=== PATIENT | female | born 1970 | race Caucasian/White ===

== ENCOUNTER 2017-03-15 12:42 | Emergency (ER) | payer MEDICAID, OTHER ==
[~2017-03-15] VITALS: Ht 154.9 cm; Wt 61.2 kg
[2017-03-15 13:25] LABS: Basophils # (auto) 0.1 uL; Basophils % (auto) 0.8 % (0.0-2.0); Eosinophils # (auto) 0.2 uL; Eosinophils % (auto) 2.8 % (0.0-7.0); Hematocrit 38.6 % (36.0-46.0); Hemoglobin 12.6 g/dL (12.2-16.2); Lymphocytes # (auto) 1.4 uL; Lymphocytes % (auto) 17.9 % (10.0-50.0); Mean Corpuscular Hemoglobin 27.8 pg (28.0-32.0); Mean Corpuscular Hgb Conc. 32.7 g/dL (32.0-36.0); Mean Corpuscular Volume 85.1 fL (80.0-100.0); Mean Platelet Volume 7.8 fL (6.9-10.8); Monocytes # (auto) 0.6 uL; Monocytes % (auto) 7.7 % (0.0-12.0); Neutrophils # (auto) 5.5 uL; Neutrophils % (auto) 70.8 % (37.0-80.0); Platelet Count (auto) 339 10^3/uL (140-450); Red Cell Distribution Width 14.4 % (11.8-14.3); White Blood Cell 7.8 10^3/uL (4.4-10.8)
[2017-03-15 13:53] LABS: Albumin 3.3 g/dL (3.4-5.0); Alkaline Phosphatase 70 U/L (45-117); Anion Gap 6 (5-15); Aspartate Aminotransferase 17 U/L (15-37); BUN/Creatinine Ratio 10.6; Bilirubin, Total 0.6 mg/dL (0.2-1.0); Blood Urea Nitrogen 7 mg/dL (7-18); Calcium 8.4 mg/dL (8.5-10.1); Carbon Dioxide 28 mmol/L (21-32); Chloride 105 mmol/L (98-107); GFR African American 125 mL/min; GFR Non-African American 103 mL/min; Glucose 94 mg/dL (74-106); Magnesium 2.2 mg/dL (1.6-2.6); Potassium 3.4 mmol/L (3.5-5.1); Sodium 139 mmol/L (136-145); Total Protein 7.2 g/dL (6.4-8.2)
[2017-03-15 20:22] LABS: Urine Bilirubin Negative (Negative); Urine Blood Negative /uL (Negative); Urine Color Yellow (Yellow); Urine Glucose Normal (Normal); Urine Ketone TRACE (Negative); Urine Mucus FEW (None Seen); Urine Nitrite POSITIVE (Negative); Urine RBC 22 /hpf (0 - 4); Urine Squamous Epithelial Cell FEW /hpf (<5); Urine Urobilinogen Normal (Negative); Urine pH 6.5 (5.0-8.0)
[2017-03-15 21:20] VITALS: BP 127/98
[2017-03-16] MEDS ORDERED: LORazepam 2MG/ML-1ML VIAL IV ONE (00:45)
[2017-03-16] MEDS ORDERED: LORazepam 0.5 MG TAB PO ONE (00:45)
== END 2017-03-16 01:13 | disposition home or self-care (01) ==
LOC: ER 12:42
DX: M79.602 Pain in left arm (principal); R42 Dizziness and giddiness; F41.9 Anxiety disorder, unspecified; R51 Headache; M47.892 Other spondylosis, cervical region; F12.10 Cannabis abuse, uncomplicated; F15.10 Other stimulant abuse, uncomplicated
CPT/HCPCS: 36415; 70450; 71020; 72125; 80053; 80307; 81001; 83735; 84484; 84702; 85025; 93005

== ENCOUNTER 2017-11-23 03:06 | Emergency (ER) | payer MEDICAID ==
[~2017-11-23] VITALS: Ht 157.5 cm; Wt 52.2 kg
[2017-11-23] MEDS ORDERED: LORazepam 2MG/ML-1ML VIAL IM ONE (05:30)
[2017-11-23] MEDS ORDERED: LORazepam 2MG/ML-1ML VIAL IV ONE (05:30)
[2017-11-23] MEDS ORDERED: diphenhdrAMINE HCL 50 MG/1 ML VL IM ONE (05:30)
[2017-11-23] MEDS ORDERED: HALOPERIDOL LACTATE 5 MG/ML INJ VIAL IM ONE (05:30)
[2017-11-23 06:44] LABS: Basophils # (auto) 0 uL; Basophils % (auto) 0.5 % (0.0-2.0); Eosinophils # (auto) 0 uL; Lymphocytes # (auto) 1.1 uL; Lymphocytes % (auto) 17.6 % (10.0-50.0); Monocytes # (auto) 0.5 uL; Neutrophils # (auto) 4.7 uL; White Blood Cell 6.4 10^3/uL (4.4-10.8)
[2017-11-23 06:51] LABS: Eosinophils % (auto) 0.3 % (0.0-7.0); Hematocrit 31.5 % (36.0-46.0); Hemoglobin 10.4 g/dL (12.2-16.2); Mean Corpuscular Hemoglobin 25.7 pg (28.0-32.0); Mean Corpuscular Hgb Conc. 33.1 g/dL (32.0-36.0); Mean Corpuscular Volume 77.6 fL (80.0-100.0); Neutrophils % (auto) 73.6 % (37.0-80.0); Nucleated Red Blood Cells % 0.1 %; Platelet Count (auto) 253 10^3/uL (140-450); Red Blood Cells 4.06 10^6/uL (4.0-5.20); Red Cell Distribution Width 16.6 % (11.8-14.3)
[2017-11-23 07:02] LABS: Alanine Aminotransferase 26 U/L (13-56); Albumin 2.9 g/dL (3.4-5.0); Anion Gap 13 (5-15); Aspartate Aminotransferase 24 U/L (15-37); BUN/Creatinine Ratio 18.8; Blood Urea Nitrogen 13 mg/dL (7-18); Calcium 7.5 mg/dL (8.5-10.1); Carbon Dioxide 25 mmol/L (21-32); Chloride 104 mmol/L (98-107); GFR African American 118 mL/min; GFR Non-African American 97 mL/min; Glucose 86 mg/dL (74-106); Sodium 142 mmol/L (136-145)
[2017-11-23 07:12] LABS: Acetaminophen < 2.0 ug/mL (10-30); Salicylate < 1.7 mg/dL (2.8-20.0)
[2017-11-23 07:17] LABS: Alkaline Phosphatase 66 U/L (45-117); Bilirubin, Total 0.4 mg/dL (0.2-1.0); Potassium 2.9 mmol/L (3.5-5.1); Total Protein 6.6 g/dL (6.4-8.2)
[2017-11-23 10:27] LABS: Urine Bacteria FEW /hpf (None Seen); Urine Blood Negative /uL (Negative); Urine Mucus FEW (None Seen); Urine Specific Gravity 1.023 (1.001-1.035); Urine WBC 5 /hpf (0 - 5)
[2017-11-23 10:49] LABS: Amphetamine Screen, Urine POSITIVE (NEGATIVE); Barbiturate Scree,Urine NEGATIVE (NEGATIVE); Benzodiazephine Screen, Urine NEGATIVE (NEGATIVE); Cannabinoid Screen, Urine NEGATIVE (NEGATIVE); Cocaine Screen, Urine NEGATIVE (NEGATIVE); Opiate Scree,Urine NEGATIVE (NEGATIVE); Phencyclidine Screen, Urine NEGATIVE (NEGATIVE)
[2017-11-23] MEDS ORDERED: SODIUM CHLORIDE 0.9% 1,000 ML IV ONE ×2 (16:25)
[2017-11-23] MEDS: POTASSIUM CHL 20MEQ/100ML 100 ML IV SCH ×3 (16:48→21:25)
[2017-11-23] MEDS ORDERED: POTASSIUM CHL 20MEQ/100ML 100 ML IV ONE (16:48)
[2017-11-24 09:17] VITALS: BP 128/88
== END 2017-11-24 18:30 ==
LOC: EDBD 03:06 → ER 03:12
DX: R45.851 Suicidal ideations (principal); E87.6 Hypokalemia; F41.9 Anxiety disorder, unspecified; F12.10 Cannabis abuse, uncomplicated; F15.10 Other stimulant abuse, uncomplicated
CPT/HCPCS: 36415; 51702; 80053; 80307; 80320; 80329; 81001; 81025; 84132; 84484; 85025; 96365; 96366; 96372; 99285; J1200; J1630; J2060; J3480; J7030; 96361; 96374; 96375

== ENCOUNTER 2022-06-23 09:24 | Emergency (ER) | payer MEDICAID ==
[~2022-06-23] VITALS: Ht 157.5 cm; Wt 69.0 kg
[2022-06-23 10:01] LABS: Urine Bacteria NONE SEEN /hpf (None Seen); Urine Blood 1+ /uL (Negative); Urine Specific Gravity 1.002 (1.001-1.035); Urine WBC 1 /hpf (0 - 5)
[2022-06-23 10:12] LABS: Basophils # (auto) 0.1 10 ^3/uL (0-0.2); Basophils % (auto) 0.7 % (0.0-2.0); Eosinophils # (auto) 0.1 10 ^3/uL (0-0.8); Eosinophils % (auto) 1.3 % (0.0-7.0); Hematocrit 39.7 % (36.0-46.0); Hemoglobin 13.5 g/dL (12.2-16.2); Lymphocytes # (auto) 1.4 10 ^3/uL (0.4-5.4); Mean Corpuscular Hemoglobin 31.1 pg (28.0-32.0); Mean Corpuscular Hgb Conc. 33.9 g/dL (32.0-36.0); Mean Corpuscular Volume 91.8 fL (80.0-100.0); Monocytes # (auto) 0.6 10 ^3/uL (0-1.3); Monocytes % (auto) 7.5 % (0.0-12.0); Neutrophils # (auto) 5.5 10 ^3/uL (1.6-8.6); Neutrophils % (auto) 72.5 % (37.0-80.0); Nucleated Red Blood Cells % 0.2 %; Red Blood Cells 4.33 10^6/uL (4.0-5.20); White Blood Cell 7.6 10^3/uL (4.4-10.8)
[2022-06-23 10:28] LABS: Albumin 4.2 g/dL (3.4-5.0); Calcium 9.3 mg/dL (8.5-10.1); Potassium 4.7 mmol/L (3.5-5.1)
[2022-06-23 10:33] LABS: BUN/Creatinine Ratio 21.9; Bilirubin, Total 0.5 mg/dL (0.2-1.0)
[2022-06-23 15:36] VITALS: BP 115/85
== END 2022-06-23 15:36 | disposition home or self-care (01) ==
LOC: ER 09:24
DX: F43.9 Reaction to severe stress, unspecified (principal); I10 Essential (primary) hypertension
CPT/HCPCS: 36415; 70450; 80053; 81001; 82962; 84484; 85025

== ENCOUNTER 2025-02-23 01:34 | Inpatient (IN) | payer MEDICAID ==
[~2025-02-23] VITALS: Ht 160 cm; Wt 87.8 kg
--- NOTE | 2025-02-23 02:14 | ED.PDOC ---
History of Present Illness HPI Comments 54-year-old female came to ER via EMS for weakness. Patient has a history of hypertension, traumatic brain injury, history of methamphetamine abuse. States she smoked marijuana about 2 hours prior to arrival. 45 minutes prior to arrival, patient started feeling weak, like her heart was fluttering, and dizziness. Denies any acute chest pains. Upon arrival paramedics patient noted to be on bigeminy on EKG. REVIEW OF SYSTEMS: General: No fever, no chills, or fatigue. Positive generalized weakness. HEENT: No sore throat, no earache, no congestion, no neck pain. Cardiac: No chest pain. Positive palpitations. Lungs: No shortness of breath, no cough. GI: No nausea, no vomiting, no diarrhea, no constipation, no abdominal pain : No dysuria, frequency, or urgency. No hematuria. Musculoskeletal: No joint pain , no joint swelling, no extremity edema. Skin: No rash, no itching. Neuro: No headache, positive dizziness, no weakness PHYSICAL EXAM: General: Awake, alert, somewhat lethargic appearing. Skin: Skin in warm, dry and intact. Appropriate color for ethnicity. HEENT: The head is normocephalic and atraumatic. Conjunctivae are clear without exudates or hemorrhage. Sclera is non-icteric. EOM are intact. No signs of nystagmus. Eyelids are normal in appearance without swelling or lesions. Oral mucosa is pink and moist Neck: The neck is supple with normal range of motion. No JVD. Cardiac: Heart rate and rhythm are normal. No murmurs, gallops, or rubs are auscultated. Respiratory: No signs of respiratory distress. Lung sounds are clear in all lobes bilaterally without rales, rhonchi, or wheezes. Abdominal: Abdomen is soft, non-tender without distention, guarding or rigidity. Bowel sounds are present and normoactive in all four quadrants. Extremities: Upper and lower extremities are atraumatic in appearance without deformity or edema. Neurological: The patient is awake, alert and oriented to person, place, and time with normal speech. Speech is clear. There is no facial asymmetry. Psychiatric: Appropriate mood and affect. Good judgement and insight. Chief Complaint: General Weakness Time Seen by MD: 02:14 Primary Care Provider: Dawit Reviewed Notes: Nurses Notes Allergies: Coded Allergies: NO KNOWN ALLERGIES (Unverified , 03/15/17) Information Source: Patient Mode of Arrival: EMS Past Medical History PAST MEDICAL HISTORY: HTN Past Medical History (Other): Traumatic brain injury, SVTs Surgical History: Denies all surgeries PALEOLOGIST History: No Pertinent PALEOLOGIST History Family History Family History: Unknown Social History Smoker: Non-Smoker Alcohol: Denies ETOH Use Drugs: Marijuana, Methamphetamine Lives In: Home Was a procedure done? Was a procedure done?: No EKG EKG : Pulse Rate (adult): 87 Cardiac Rhythm: NSR Comments Ventricular bigeminy Differential Dx Considerations may include: Anemia, electrolyte imbalance, weakness, arrhythmia X-Ray, Labs, Meds, VS Vital Signs Date Time Temp Pulse Resp B/P (MAP) Pulse Ox O2 Delivery O2 Flow Rate FiO2 02/23/25 02:40 98.1 74 18 115/71 (86) 91 98.1 02/23/25 02:40 75 18 91 Nasal Cannula* 2 28 02/23/25 02:14 87 02/23/25 01:42 98.0 64 18 139/68 94 98.0 Lab Test 02/23/25 02:16 02/23/25 01:45 Range/Units White Blood Count Pending Red Blood Count Pending Hemoglobin Pending Hematocrit Pending Mean Corpuscular Volume Pending Mean Corpuscular Hemoglobin Pending Mean Corpuscular Hemoglobin Concent Pending Red Cell Distribution Width Pending Platelet Count Pending Mean Platelet Volume Pending Neutrophils (%) (Auto) Pending Lymphocytes (%) (Auto) Pending Monocytes (%) (Auto) Pending Basophils (%) (Auto) Pending Neutrophils # (Auto) Pending Lymphocytes # (Auto) Pending Monocytes # (Auto) Pending Sodium Level 139 136-145 mmol/L Potassium Level 4.1 3.5-5.1 mmol/L Chloride Level 103 98-107 mmol/L Carbon Dioxide Level 27 20-31 mmol/L Anion Gap 9 5-15 Blood Urea Nitrogen 16 9-23 mg/dL Creatinine 1.26 H 0.550-1.02 mg/dL Glomerular Filtration Rate Calc 51 >90 mL/min BUN/Creatinine Ratio 12.7 10.0-20.0 Serum Glucose 106 74-106 mg/dL Lactic Acid Level 0.7 0.4-2.0 mmol/L Calcium Level 9.1 8.7-10.4 mg/dL Magnesium Level 2.1 1.6-2.6 mg/dL Total Bilirubin 0.4 0.2-1.0 mg/dL Aspartate Amino Transferase (AST) 18 13-40 U/L Alanine Aminotransferase (ALT) 14 7-40 U/L Alkaline Phosphatase 79 46-116 U/L Troponin I High Sensitivity < 3 L </=34 ng/L B-Type Natriuretic Peptide 16.68 0-100 pg/mL Total Protein 7.1 5.7-8.2 g/dL Albumin 4.2 3.2-4.8 g/dL Lipase 44 12-53 U/L Thyroid Stimulating Hormone (TSH) 2.64 0.55-4.78 uIU/mL Plasma/Serum Blood Alcohol < 3.0 <10 mg/dL Urine Color Light-yellow Yellow Urine Clarity Clear Clear Urine pH 6.0 5.0-9.0 Urine Specific [place] 1.011 1.001-1.035 Urine Protein Negative Negative Urine Ketones Negative Negative Urine Blood Negative Negative /uL Urine Nitrite Negative Negative Urine Bilirubin Negative Negative Urine Urobilinogen Normal Negative mg/dL Urine Leukocyte Esterase Negative Negative /uL Urine RBC <1 0 - 4 /hpf Urine Microscopic WBC 3 0-5 /HPF Urine Squamous Epithelial Cells Few <5 /hpf Urine Renal Epithelial Cells Few None Seen /hpf Urine Bacteria None seen None Seen /hpf Urine Glucose Normal Normal mg/dL Urine Opiates Screen Neg NEGATIVE Urine Fentanyl Screen Neg NEGATIVE Urine Barbiturates Screen Neg NEGATIVE Urine Phencyclidine Screen Neg NEGATIVE Urine Amphetamines Screen Neg NEGATIVE Urine Benzodiazepines Screen Neg NEGATIVE Urine Cocaine Screen Neg NEGATIVE Urine Cannabinoids Screen Pos NEGATIVE Influenza Type A Antigen Negative Negative Influenza Type B Antigen Negative Negative SARS-CoV-2 Antigen (Rapid) Negative NEGATIVE Time of 1ST Reevaluation: 02:10 Reevaluation 1ST: Unchanged Patient Education/Counseling: Need For Follow Up Family Education/Counseling: No Family Present SEPSIS Sepsis Screen Date sepsis recognized/suspect: Feb 23, 2025 Time Sepsis recognized/suspect: 0153 Recent Procedure: No On Antibiotic Therapy: No Respiratory Rate >20: No Heart Rate >90: No Temp<36 C (96.8 F) or >38.3 C: No SBP <90 or MAP <65 mmHG: No New Acute Mental Status Change: No Is the patient on CPAP, BIPAP,: No Physician Orders Complete Blood Count (02/23/25 01:45) Chest Xray 1 View (02/23/25 01:45) Electrocardigram (02/23/25 01:45) Blood Culture (02/23/25 01:45) Saline Lock (02/23/25 01:45) Straight Cath. (02/23/25 ) Vital Signs Date Time Temp Pulse Resp B/P (MAP) Pulse Ox O2 Delivery O2 Flow Rate FiO2 02/23/25 02:40 98.1 74 18 115/71 (86) 91 98.1 02/23/25 02:40 75 18 91 Nasal Cannula* 2 28 02/23/25 02:14 87 02/23/25 01:42 98.0 64 18 139/68 94 98.0 Laboratory Tests Test 02/23/25 02:16 Lactic Acid Level 0.7 mmol/L (0.4-2.0) White Blood Count Pending Departure 1 Departure Time of Disposition: 04:42 Impression: Primary Impression: Palpitation Additional Impressions: Cardiac arrhythmia Ventricular bigeminy Disposition: ADMITTED INPATIENT Condition: Stable Comments 54-year-old female who presents to the emergency department with palpitations. She has been persistently in ventricular bigeminy during the ED observation. CBC result delayed due to malfunction of lab equipment. Patient admitted to hospitalist service for further treatment, evaluation and monitoring. Critical Care Note Critical Care Time?: No Stability Stability form required: No Heart Score Heart Score: Heart Score Response (Comments) Value History Slightly Suspicious 0 EKG Normal 0 Age 45-64 1 Risk Factors 1 or 2 risk factors 1 Troponin Normal limit 0 Total 2 I personally scribed for GUILHERME CURTIS MD ([email or web address]) on 02/23/25 at 02:14. Electronically submitted by Jose Sorensen ([email or web address]). GUILHERME CURTIS MD Feb 23, 2025 02:14
--- NOTE | 2025-02-23 02:34 | DVH ---
CHEST RADIOGRAPH Indication: Generalized weakness Technique: Single frontal view of the chest was obtained COMPARISON: None FINDINGS: Lines and Tubes: None Lungs: Mild diffuse increased prominence of the pulmonary vasculature. Mild bibasilar atelectasis. No evidence of focal consolidation. Pleura: No effusion. No pneumothorax. Cardiomediastinal contours: Unremarkable Bones: Unremarkable IMPRESSION: 1. Mild diffuse increased prominence of the pulmonary vasculature may be due to mild pulmonary vascul ar congestion. 2. No evidence of acute cardiopulmonary process.
[2025-02-23 02:40] VITALS: PULSE 75; RESP 18; O2SAT 91
[2025-02-23 03:01] LABS: COVID19 ANTIGEN SOFIA FIA NEGATIVE (NEGATIVE)
[2025-02-23 03:25] LABS: Alanine Aminotransferase 14 U/L (7-40); Albumin 4.2 g/dL (3.2-4.8); Alkaline Phosphatase 79 U/L (46-116); Anion Gap 9 (5-15); BUN/Creatinine Ratio 12.7 (10.0-20.0); Blood Urea Nitrogen 16 mg/dL (9-23); Calcium 9.1 mg/dL (8.7-10.4); Carbon Dioxide 27 mmol/L (20-31); Chloride 103 mmol/L (98-107); Magnesium 2.1 mg/dL (1.6-2.6); Potassium 4.1 mmol/L (3.5-5.1); Sodium 139 mmol/L (136-145); Total Protein 7.1 g/dL (5.7-8.2)
[2025-02-23 03:26] LABS: Bilirubin, Total 0.4 mg/dL (0.2-1.0)
[2025-02-23 03:30] LABS: Urine Protein, UAD Negative (Negative)
[2025-02-23 03:31] LABS: Glucose 106 mg/dL (74-106)
[2025-02-23 03:36] LABS: Cannabinoid Screen, Urine Pos (NEGATIVE)
[2025-02-23 04:30] LABS: Amphetamine Screen, Urine Neg (NEGATIVE); Barbiturate Scree,Urine Neg (NEGATIVE); Benzodiazephine Screen, Urine Neg (NEGATIVE); Cocaine Screen, Urine Neg (NEGATIVE); Opiate Scree,Urine Neg (NEGATIVE); Phencyclidine Screen, Urine Neg (NEGATIVE)
[2025-02-23 04:40] LABS: Lipase 44 U/L (12-53)
[2025-02-23 04:56] LABS: Hematocrit 40.4 % (36.0-46.0); Hemoglobin 13.6 g/dL (12.2-16.2); Mean Corpuscular Hemoglobin 30.3 pg (28.0-32.0); Mean Corpuscular Volume 90.3 fL (80.0-100.0); Nucleated Red Blood Cells % 0.2 %
[2025-02-23] MEDS: SODIUM CHLORIDE 0.9% 1,000 ML IV ONE ×2 (06:05→06:53)
--- NOTE | 2025-02-23 07:09 | ECG ---
[facility] Test Date: 2025-02-23 Test Time: 01:58:28 Pat Name: AIYANA MELGAR Department: [facility] ED Patient ID: [id number] Room: 0291T Gender: F Sprinkler Worker: : 1970 Requested By: GUILHERME CURTIS Order Number: [id number] Reading MD: Bienvenido Dias Measurements Intervals [place] Rate: 87 P: 5 VA: 162 QRS: 45 QRSD: 90 T: 48 QT: 416 QTc: 501 Interpretive Statements Sinus rhythm Ventricular bigeminy Minimal ST depression Minimal ST elevation, inferior leads Electronically Signed On 02-27-2025 22:00:48 PDT by Bienvenido Dias Please click the below link to view image of tracing.
[2025-02-23 07:10] VITALS: PULSE 71; RESP 16; O2SAT 95
--- NOTE | 2025-02-23 07:12 | DVHHP2 ---
NIA AVILEZ RESIDENT 02/23/25 0712: History of Present Illness History of Present Illness Patient is 54-year-old female with no known medical history came to the hospital with a chief complaint feeling weak, uneasy and dizziness which started around 7:00 p.m. on 02/22/2025. Acute onset, not associated with the chest pain or shortness of breath, that prompted visit to the hospital. As per patient she had similar complaints in October, was hospitalized for four days at [place], underwent coronary angiogram and sent her home with metoprolol and advised to follow with electrophysiology for further evaluation, possible pacemaker candidate. However as per patient she did not continue taking metoprolol given it did not make her feel good. Apart from that, she is denying any other complaints including fever, chills, cough, sputum production, motor weakness, sensory deficits, any other symptoms. Past medical history: ? Ventricular bigeminy Past surgical history: None Allergy: None Personal history: Lives with family, smokes cigarettes since she is 46-year-old . Had tried marijuana yesterday. Family history: Noncontributory Home medication: None Review of Systems Constitutional: No: Fever, Chills, Sweats, Weakness, Malaise, Other Eyes: No: Pain, Vision change, Conjunctivae inflammation, Eyelid inflammation, Other, Redness ENT: No: Ear pain, Ear discharge, Nose pain, Nose discharge, Nose congestion, Mouth pain, Mouth swelling, Throat pain, Throat swelling, Other Respiratory: No: Cough, Dry, Shortness of breath, SOB with excertion, Wheezing, Hemoptysis, Pleuritic Pain, Sputum, Wheezing, Other Cardiovascular: Palpitations Gastrointestinal: No: Nausea, Vomiting, Abdominal Pain, Diarrhea, Constipation, Melena, Hematochezia, Other Genitourinary: No Dysuria, No Frequency, No Incontinence, No Hematuria, No Retention, No Other Musculoskeletal: No: other, neck pain, shoulder pain, arm pain, back pain, hand pain, leg pain, foot pain Skin: No: Rash, Lesions, Jaundice, Bruising, Other Neurological: No: Weakness, Numbness, Incoordination, Change in speech, Confusion, Seizures, Other Allergies: Coded Allergies: NO KNOWN ALLERGIES (Unverified , 03/15/17) Medications Current Medications Medications Dose Ordered Sig/Adonay Route Start Time Stop Time Status Last Admin Dose Admin Nitroglycerin 0.4 mg Q5MINP PRN SL 02/23/25 07:15 UNV Morphine Sulfate 2 mg Q30M PRN IV 02/23/25 07:15 UNV Exam Vital Signs Vital Signs Date Time Temp Pulse Resp B/P (MAP) Pulse Ox O2 Delivery O2 Flow Rate FiO2 02/23/25 06:54 72 98/61 (73) 02/23/25 05:20 98.1 18 91 98.1 02/23/25 02:40 Nasal Cannula* 2 28 General Appearance: Alert, Oriented X3, Cooperative, No acute distress HEENT: Atraumatic, PERRLA, EOMI, Mucous membr. moist/pink Respiratory: Normal air movement, Other Cardiovascular: Regular rate (Sinus bradycardia), Normal S1, Normal S2, No murmurs Abdominal: Normal bowel sounds, Soft, No tenderness, No hepatospenomegaly Extremities: No clubbing, No cyanosis, No edema, Normal pulses, No tenderness/swelling Skin: No rashes, No breakdown, No significant lesion Neuro: Normal gait, Normal speech, Strength at 5/5 X4 ext, Normal tone, Sensation intact, Cranial nerves 3-12 NL, Reflexes 2+ Psych/Mental Status: Mood NL Labs/Xrays Labs Test 02/23/25 02:16 02/23/25 01:45 Range/Units White Blood Count 5.8 4.4-10.8 10^3/uL Red Blood Count 4.47 4.0-5.20 10^6/uL Hemoglobin 13.6 12.2-16.2 g/dL Hematocrit 40.4 36.0-46.0 % Mean Corpuscular Volume 90.3 80.0-100.0 fL Mean Corpuscular Hemoglobin 30.3 28.0-32.0 pg Mean Corpuscular Hemoglobin Concent 33.6 32.0-36.0 g/dL Red Cell Distribution Width 13.4 11.8-14.3 % Platelet Count 227 140-450 10^3/uL Mean Platelet Volume 8.5 6.9-10.8 fL Neutrophils (%) (Auto) 58.4 37.0-80.0 % Lymphocytes (%) (Auto) 28.4 10.0-50.0 % Monocytes (%) (Auto) 10.0 0.0-12.0 % Eosinophils (%) (Auto) 2.4 0.0-7.0 % Basophils (%) (Auto) 0.8 0.0-2.0 % Neutrophils # (Auto) 3.4 1.6-8.6 10 ^3/uL Lymphocytes # (Auto) 1.7 0.4-5.4 10 ^3/uL Monocytes # (Auto) 0.6 0-1.3 10 ^3/uL Eosinophils # (Auto) 0.1 0-0.8 10 ^3/uL Basophils # (Auto) 0 0-0.2 10 ^3/uL Nucleated Red Blood Cells 0.2 % Sodium Level 139 136-145 mmol/L Potassium Level 4.1 3.5-5.1 mmol/L Chloride Level 103 98-107 mmol/L Carbon Dioxide Level 27 20-31 mmol/L Anion Gap 9 5-15 Blood Urea Nitrogen 16 9-23 mg/dL Creatinine 1.26 H 0.550-1.02 mg/dL Glomerular Filtration Rate Calc 51 >90 mL/min BUN/Creatinine Ratio 12.7 10.0-20.0 Serum Glucose 106 74-106 mg/dL Lactic Acid Level 0.7 0.4-2.0 mmol/L Calcium Level 9.1 8.7-10.4 mg/dL Magnesium Level 2.1 1.6-2.6 mg/dL Total Bilirubin 0.4 0.2-1.0 mg/dL Aspartate Amino Transferase (AST) 18 13-40 U/L Alanine Aminotransferase (ALT) 14 7-40 U/L Alkaline Phosphatase 79 46-116 U/L Troponin I High Sensitivity < 3 L </=34 ng/L B-Type Natriuretic Peptide 16.68 0-100 pg/mL Total Protein 7.1 5.7-8.2 g/dL Albumin 4.2 3.2-4.8 g/dL Lipase 44 12-53 U/L Thyroid Stimulating Hormone (TSH) 2.64 0.55-4.78 uIU/mL Plasma/Serum Blood Alcohol < 3.0 <10 mg/dL Urine Color Light-yellow Yellow Urine Clarity Clear Clear Urine pH 6.0 5.0-9.0 Urine Specific [place] 1.011 1.001-1.035 Urine Protein Negative Negative Urine Ketones Negative Negative Urine Blood Negative Negative /uL Urine Nitrite Negative Negative Urine Bilirubin Negative Negative Urine Urobilinogen Normal Negative mg/dL Urine Leukocyte Esterase Negative Negative /uL Urine RBC <1 0 - 4 /hpf Urine Microscopic WBC 3 0-5 /HPF Urine Squamous Epithelial Cells Few <5 /hpf Urine Renal Epithelial Cells Few None Seen /hpf Urine Bacteria None seen None Seen /hpf Urine Glucose Normal Normal mg/dL Urine Opiates Screen Neg NEGATIVE Urine Fentanyl Screen Neg NEGATIVE Urine Barbiturates Screen Neg NEGATIVE Urine Phencyclidine Screen Neg NEGATIVE Urine Amphetamines Screen Neg NEGATIVE Urine Benzodiazepines Screen Neg NEGATIVE Urine Cocaine Screen Neg NEGATIVE Urine Cannabinoids Screen Pos NEGATIVE Influenza Type A Antigen Negative Negative Influenza Type B Antigen Negative Negative SARS-CoV-2 Antigen (Rapid) Negative NEGATIVE SEPSIS Sepsis Screen Date sepsis recognized/suspect: Feb 23, 2025 Time Sepsis recognized/suspect: 242 Recent Procedure: No On Antibiotic Therapy: No Respiratory Rate >20: No Heart Rate >90: No Temp<36 C (96.8 F) or >38.3 C: No SBP <90 or MAP <65 mmHG: No New Acute Mental Status Change: No Is the patient on CPAP, BIPAP,: No Physician Orders Chest Xray 1 View (02/23/25 01:45) Blood Culture (02/23/25 01:45) Saline Lock (02/23/25 01:45) Straight Cath. (02/23/25 ) Sodium Chloride 0.9% (02/23/25 06:15) Sodium Chloride 0.9% (02/23/25 07:00) Admit (02/23/25 07:07) Nitroglycerin Sublingual (Ntrostat Subli (02/23/25 07:15) Morphine Sulfate Injection (02/23/25 07:15) Oxygen By Nasal Cannula (02/23/25 07:07) Stat Ekg For Chest Pain (02/23/25 07:07) Notify Md Of Changes From Base (02/23/25 07:07) Test Technician For 24 Hours (02/23/25 07:07) Emergency Dysrhythmia Protocol (02/23/25 07:07) Rhythm Strips Once Every Shift (02/23/25 07:07) Vital Signs Date Time Temp Pulse Resp B/P (MAP) Pulse Ox O2 Delivery O2 Flow Rate FiO2 02/23/25 06:54 72 98/61 (73) 02/23/25 05:20 98.1 77 18 103/67 (79) 91 98.1 02/23/25 02:40 98.1 74 18 115/71 (86) 91 98.1 02/23/25 02:40 75 18 91 Nasal Cannula* 2 28 02/23/25 02:14 87 02/23/25 01:58 87 02/23/25 01:42 98.0 64 18 139/68 94 98.0 Laboratory Tests Test 02/23/25 02:16 Lactic Acid Level 0.7 mmol/L (0.4-2.0) White Blood Count 5.8 10^3/uL (4.4-10.8) Medications Medications Dose Ordered Sig/Adonay Route Start Time Stop Time Status Last Admin Dose Admin Sodium Chloride 1,000 ml @ 1,000 mls/hr Q1H ONCE IV 02/23/25 06:15 02/23/25 07:14 02/23/25 06:05 1,000 MLS/HR Sodium Chloride 1,000 ml @ 1,000 mls/hr Q1H ONCE IV 02/23/25 07:00 02/23/25 07:59 02/23/25 06:53 1,000 MLS/HR Assessment/Plan Assessment/Plan Ventricular bigeminy Hypotension Cannabinoid use Palpitation likely due to ventricular bigeminy Mild pulmonary vascular congestion Obesity BMI 31.9 kg/m2 History of hypertension Current cigarette smoker Plan/recommendation -Continue magnesium oxide 400 mg p.o. b.i.d.. Target magnesium greater than 2 mg/dL, potassium greater than 4 mg/dL. As per patient she was prescribed metoprolol, however she did take for only three days. -EKG showed ventricular bigeminy. As per patient she underwent coronary angiogram at [place] in October. -Echocardiogram for evaluation of structural abnormality of heart -Cardiology consult for further evaluation -PUD prophylaxis with Protonix -DVT prophylaxis with Lovenox Smoking cessation, discussed greater than 12 minutes. Goals of care discussed greater than 24 minutes, Plan discussed with Dr. Ann Plan discussed with: Patient, Other My Orders Orders - NIA AVILEZ RESIDENT Procedure Category Date Status Time Admit ADMIT 02/23/25 Transmitted 07:07 Nitroglycerin PHA 02/23/25 Logged Sublingual (Ntrostat 07:15 Morphine Sulfate PHA 02/23/25 Transmitted Injection 07:15 Oxygen By Nasal RT 02/23/25 Transmitted Cannula 07:07 Stat Ekg For Chest [facility] 02/23/25 In Process Pain 07:07 Notify Md Of Changes [facility] 02/23/25 In Process From Base 07:07 Test Technician For [facility] 02/23/25 In Process 24 Hours 07:07 Emergency Dysrhythmia [facility] 02/23/25 In Process Protocol 07:07 Rhythm Strips Once [facility] 02/23/25 In Process Every Shift 07:07 Date of Service: Feb 23, 2025 Billing Provider: GEO ANN MD Common Visit Codes: [id number] INP/OBS CARE (HIGH) Secondary Visit Codes: [id number] CHNG SMOKING >10MIN, [id number] CARE PLAN 30 MINUTES GEO ANN MD 02/23/25 1249: Review of Systems Allergies: Coded Allergies: NO KNOWN ALLERGIES (Unverified , 03/15/17) Date of Service: Feb 23, 2025 ([place]oonlightening Patient) Billing Provider: GEO ANN MD Common Visit Codes: [id number] INP/OBS CARE (HIGH) Secondary Visit Codes: [id number] CHNG SMOKING >10MIN, [id number] CARE PLAN 30 MINUTES NIA AVILEZ Feb 23, 2025 07:12 GEO ANN MD Feb 23, 2025 12:49
[2025-02-23] MEDS ORDERED: NITROGLYCERIN 0.4 MG SL TAB SL PRN (07:15)
[2025-02-23] MEDS ORDERED: MORPHINE SULFATE INJ 2 MG/ml SYRG IV PRN (07:15)
[2025-02-23] MEDS: MAGNESIUM OXIDE 400 MG TAB PO ONE (08:11)
[2025-02-23] MEDS: PANTOPRAZOLE 40 MG TAB PO ONE (08:11)
[2025-02-23] MEDS ORDERED: HEPARIN SODIUM (PORCINE) 5000 UNITS/ML 1ML VIAL IV ONE (09:00)
[2025-02-23] MEDS: MAGNESIUM OXIDE 400 MG TAB PO SCH (09:49)
[2025-02-23] MEDS: ENOXAPARIN SOD 30 MG/0.3 ML SYRINGE SC SCH (09:49)
--- NOTE | 2025-02-23 12:01 | DVHINCON2 ---
Date of service: Feb 23, 2025 Reason for Consultation Ventricular bigeminy History of Present Illness HPI The patient is a 55-year-old female who initially presented to the emergency department on 02/23/2025 with generalized weakness and shortness of breath that began approximately 45 minutes prior to arrival. She reports that the weakness started after smoking marijuana. She denies chest pain or palpitations but notes ongoing dyspnea with exertion. Paramedics reported bigeminy on prehospital ECG. Initial electrocardiogram in the ED showed sinus rhythm at 87 bpm with occasional premature ventricular complexes (PVCs) in a bigeminal pattern, minimal ST depression, and minimal ST elevation in the inferior leads. Telemetry review demonstrated frequent PVCs with bigeminy. Laboratory evaluation revealed hemoglobin 13.6, potassium 4.1, creatinine 1.26 (GFR 51), magnesium 2.1, high-sensitivity troponin <3 (serial troponins not pursued), TSH 2.64, and BNP 16.68. Chest X-ray showed mild diffuse prominence of the pulmonary vasculature, possibly representing mild vascular congestion, but no acute cardiopulmonary process. Notably, the patient was admitted to [facility] in October 2024 for similar symptoms. Prior work-up included echocardiogram with preserved LVEF 60%, mild to moderate tricuspid insufficiency, and mild left atrial dilation. Cardiac catheterization (11/20/2024) revealed mild non-obstructive coronary artery disease. She was noted to have non-sustained ventricular tachycardia and frequent PVCs with left bundle branch morphology. She was discharged on flecainide 25 mg twice daily and metoprolol succinate 12.5 mg daily with instructions to follow up with cardiology/electrophysiology, though she reports not having established care. Cardiology was consulted to assist with cardiac management. Home Meds No Active Prescriptions or Reported Meds Review of Systems Comments A 14-point review of systems is negative unless otherwise noted in HPI H&P Exam Vital Signs Vital Signs Date Time Temp Pulse Resp B/P (MAP) Pulse Ox O2 Delivery O2 Flow Rate FiO2 02/23/25 11:00 45 15 98/58 (71) 97 02/23/25 07:10 97.8 97.8 02/23/25 07:10 Room Air* 0 21 Comments Heart: S1 and S2 present. The patient is in sinus rhythm. Lungs: Clear to auscultation Abdomen: Benign. Extremities: Distal pulses palpable, 2+. No evidence for peripheral edema Labs/Xrays Labs Test 02/23/25 08:18 02/23/25 02:16 02/23/25 01:45 Range/Units POC Glucose 90 70-106 mg/dl White Blood Count 5.8 4.4-10.8 10^3/uL Red Blood Count 4.47 4.0-5.20 10^6/uL Hemoglobin 13.6 12.2-16.2 g/dL Hematocrit 40.4 36.0-46.0 % Mean Corpuscular Volume 90.3 80.0-100.0 fL Mean Corpuscular Hemoglobin 30.3 28.0-32.0 pg Mean Corpuscular Hemoglobin Concent 33.6 32.0-36.0 g/dL Red Cell Distribution Width 13.4 11.8-14.3 % Platelet Count 227 140-450 10^3/uL Mean Platelet Volume 8.5 6.9-10.8 fL Neutrophils (%) (Auto) 58.4 37.0-80.0 % Lymphocytes (%) (Auto) 28.4 10.0-50.0 % Monocytes (%) (Auto) 10.0 0.0-12.0 % Eosinophils (%) (Auto) 2.4 0.0-7.0 % Basophils (%) (Auto) 0.8 0.0-2.0 % Neutrophils # (Auto) 3.4 1.6-8.6 10 ^3/uL Lymphocytes # (Auto) 1.7 0.4-5.4 10 ^3/uL Monocytes # (Auto) 0.6 0-1.3 10 ^3/uL Eosinophils # (Auto) 0.1 0-0.8 10 ^3/uL Basophils # (Auto) 0 0-0.2 10 ^3/uL Nucleated Red Blood Cells 0.2 % Sodium Level 139 136-145 mmol/L Potassium Level 4.1 3.5-5.1 mmol/L Chloride Level 103 98-107 mmol/L Carbon Dioxide Level 27 20-31 mmol/L Anion Gap 9 5-15 Blood Urea Nitrogen 16 9-23 mg/dL Creatinine 1.26 H 0.550-1.02 mg/dL Glomerular Filtration Rate Calc 51 >90 mL/min BUN/Creatinine Ratio 12.7 10.0-20.0 Serum Glucose 106 74-106 mg/dL Lactic Acid Level 0.7 0.4-2.0 mmol/L Calcium Level 9.1 8.7-10.4 mg/dL Magnesium Level 2.1 1.6-2.6 mg/dL Total Bilirubin 0.4 0.2-1.0 mg/dL Aspartate Amino Transferase (AST) 18 13-40 U/L Alanine Aminotransferase (ALT) 14 7-40 U/L Alkaline Phosphatase 79 46-116 U/L Troponin I High Sensitivity < 3 L </=34 ng/L B-Type Natriuretic Peptide 16.68 0-100 pg/mL Total Protein 7.1 5.7-8.2 g/dL Albumin 4.2 3.2-4.8 g/dL Lipase 44 12-53 U/L Thyroid Stimulating Hormone (TSH) 2.64 0.55-4.78 uIU/mL Plasma/Serum Blood Alcohol < 3.0 <10 mg/dL Urine Color Light-yellow Yellow Urine Clarity Clear Clear Urine pH 6.0 5.0-9.0 Urine Specific [place] 1.011 1.001-1.035 Urine Protein Negative Negative Urine Ketones Negative Negative Urine Blood Negative Negative /uL Urine Nitrite Negative Negative Urine Bilirubin Negative Negative Urine Urobilinogen Normal Negative mg/dL Urine Leukocyte Esterase Negative Negative /uL Urine RBC <1 0 - 4 /hpf Urine Microscopic WBC 3 0-5 /HPF Urine Squamous Epithelial Cells Few <5 /hpf Urine Renal Epithelial Cells Few None Seen /hpf Urine Bacteria None seen None Seen /hpf Urine Glucose Normal Normal mg/dL Urine Opiates Screen Neg NEGATIVE Urine Fentanyl Screen Neg NEGATIVE Urine Barbiturates Screen Neg NEGATIVE Urine Phencyclidine Screen Neg NEGATIVE Urine Amphetamines Screen Neg NEGATIVE Urine Benzodiazepines Screen Neg NEGATIVE Urine Cocaine Screen Neg NEGATIVE Urine Cannabinoids Screen Pos NEGATIVE Influenza Type A Antigen Negative Negative Influenza Type B Antigen Negative Negative SARS-CoV-2 Antigen (Rapid) Negative NEGATIVE Assessment/Plan Admitting Diagnosis: Frequent premature of ventricular contractions Coronary artery disease, non-obstructive as per LH11/20/2024 Preserved LVEF 60% per echocardiogram 11/19/2024 Marijuana dependence Plan Recognizing previously documented intermittent episodes of non-sustained ventricular tachycardia in addition to frequent premature ventricular contractions, as previous echocardiogram had revealed LVEF of 60% with no evidence for obstructive coronary disease as per cardiac catheterization 11/20/2024 recommendation is to continue low-dose flecainide at 25 mg twice daily in addition to low-dose metoprolol succinate 12.5 mg daily as concurrent rate/hemodynamic permit. Patient will need to follow up with outpatient cardiology/electrophysiology services to pursue further outpatient based event monitoring to assess efficacy of present regimen. Proceed with close hemodynamic surveillance Proceed with optimized blood pressure control Transfuse to sustain HGB levels above 7.0 Sustain Magnesium level greater than 2.0 Sustain Potassium level greater than 4.0 Follow up renal function and electrolytes Management in Telemetry Will proceed to follow from a cardiac perspective Further recommendations per clinical progression All available labs, EKGs, and images were personally reviewed Patient's status, findings, and plan of care was discussed and reviewed with supervising physician Dr. Middleton, who is in agreement with current plan of care. Plan of care discussed with and agreed upon by patient/family/Primary RN. Prognosis: Guarded Thank you for allowing me to participate in the care of this patient. Further recommendations will depend on clinical progression, hospitalist, and other consultants. Will continue to follow with Primary. If you have any questions, please do not hesitate to contact me. A total of 75 minutes was spent reviewing the patient record, examining the patient, making a diagnostic and therapeutic plan, discussing this plan with medical personnel, following up on diagnostic studies and following the patient for clinical stability excluding any and all procedures. At least 50% of this time was spent in direct, [id number] contact. Plan discussed with: Patient ESTHER STANTON NP Feb 23, 2025 12:01
[2025-02-23 20:00] VITALS: PULSE 64; RESP 16; O2SAT 98
[2025-02-23 22:00] VITALS: BP 107/61; PULSE 69; RESP 19; TEMP 97.9; O2SAT 99
[2025-02-23 22:04] VITALS: BP 100/59; PULSE 50; RESP 18; TEMP 97.8; O2SAT 97
[2025-02-24] VITALS (8 sets, daily range): BP systolic 95–140; BP diastolic 47–86; PULSE 44–72; RESP 16–21; TEMP 36.6; O2SAT 92–100
[2025-02-24] MEDS: PANTOPRAZOLE 40 MG TAB PO SCH (05:37)
--- NOTE | 2025-02-24 08:38 | DVHPN2 ---
Progress Note - Dictate Date Seen: Feb 24, 2025 Medical Necessity Reason Pt with a Central, PICC or Fol: No vital signs Vital Sign Date Time Temp Pulse Resp B/P (MAP) Pulse Ox O2 Delivery O2 Flow Rate FiO2 02/24/25 05:00 97.6 72 18 95/61 (72) 96 97.6 02/23/25 22:04 Nasal Cannula* 2 28 Total Intake and Output 02/23/25 02/23/25 02/24/25 14:59 22:59 06:59 Intake Total 1000 ml 200 ml Output Total 200 ml Balance 1000 ml 0 ml medications Current Medications Medications Dose Ordered Sig/Adonay Route Start Time Stop Time Status Last Admin Dose Admin Nitroglycerin 0.4 mg Q5MINP PRN SL 02/23/25 07:15 Morphine Sulfate 2 mg Q30M PRN IV 02/23/25 07:15 Magnesium Oxide 400 mg BID PO 02/23/25 10:00 02/23/25 23:02 400 MG Enoxaparin Sodium 30 mg DAILY SC 02/23/25 10:00 02/23/25 09:49 30 MG Pantoprazole Sodium 40 mg DAILY@0600 PO 02/24/25 06:00 02/24/25 05:37 40 MG Flecainide Acetate 25 mg Q12HR PO 02/24/25 10:00 Metoprolol Succinate 12.5 mg DAILY PO 02/24/25 10:00 laboratory and microbiology Laboratory Tests 02/23/25 02:16 Test 02/23/25 02:16 Range/Units Serum Glucose 106 74-106 mg/dL Assessment/Plan The patient is a 55-year-old female who initially presented to the emergency department on 02/23/2025 with generalized weakness and shortness of breath that began approximately 45 minutes prior to arrival. She reports that the weakness started after smoking marijuana. She denies chest pain or palpitations but notes ongoing dyspnea with exertion. Paramedics reported bigeminy on prehospital ECG. Initial electrocardiogram in the ED showed sinus rhythm at 87 bpm with occasional premature ventricular complexes (PVCs) in a bigeminal pattern, minimal ST depression, and minimal ST elevation in the inferior leads. Telemetry review demonstrated frequent PVCs with bigeminy. Laboratory evaluation revealed hemoglobin 13.6, potassium 4.1, creatinine 1.26 (GFR 51), magnesium 2.1, high-sensitivity troponin <3 (serial troponins not pursued), TSH 2.64, and BNP 16.68. Chest X-ray showed mild diffuse prominence of the pulmonary vasculature, possibly representing mild vascular congestion, but no acute cardiopulmonary process. Notably, the patient was admitted to [facility] in October 2024 for similar symptoms. Prior work-up included echocardiogram with preserved LVEF 60%, mild to moderate tricuspid insufficiency, and mild left atrial dilation. Cardiac catheterization (11/20/2024) revealed mild non-obstructive coronary artery disease. She was noted to have non-sustained ventricular tachycardia and frequent PVCs with left bundle branch morphology. She was discharged on flecainide 25 mg twice daily and metoprolol succinate 12.5 mg daily with instructions to follow up with cardiology/electrophysiology, though she reports not having established care. PMH includes: hypertension, TBI, Meth abuse, Marijuana use/abuse, History of SVT/NSVT and also non-compliance. Admitting Diagnosis: Frequent premature of ventricular contractions Coronary artery disease, non-obstructive as per LH11/20/2024 Preserved LVEF 60% per echocardiogram 11/19/2024 Marijuana dependence Non-compliance to meds and follow ups Plan Recognizing previously documented intermittent episodes of non-sustained ventricular tachycardia in addition to frequent premature ventricular contractions, as previous echocardiogram had revealed LVEF of 60% with no evidence for obstructive coronary disease as per cardiac catheterization 11/20/2024 recommendation is to continue low-dose flecainide at 25 mg twice daily in addition to low-dose metoprolol succinate 12.5 mg daily as concurrent rate/hemodynamic permit. Patient will need to follow up with outpatient cardiology/electrophysiology services to pursue further outpatient based event monitoring to assess efficacy of present regimen. Counseled to be compliant to meds/follow ups Counseled to avoid substance abuse Proceed with close hemodynamic surveillance Proceed with optimized blood pressure control Transfuse to sustain HGB levels above 7.0 Sustain Magnesium level greater than 2.0 Sustain Potassium level greater than 4.0 Follow up renal function and electrolytes Management in Telemetry Will proceed to follow from a cardiac perspective Further recommendations per clinical progression All available labs, EKGs, and images were personally reviewed Plan of care discussed with and agreed upon by patient/family/Primary RN. Prognosis: Guarded Thank you for allowing me to participate in the care of this patient. Further recommendations will depend on clinical progression, hospitalist, and other consultants. Will continue to follow with Primary. If you have any questions, please do not hesitate to contact me. A total of 55 minutes was spent reviewing the patient record, examining the patient, making a diagnostic and therapeutic plan, discussing this plan with medical personnel, following up on diagnostic studies and following the patient for clinical stability excluding any and all procedures. At least 50% of this time was spent in direct, [id number] contact. Plan discussed with: Patient, Other (nurse) ESPERANZA DANIELLE MD Feb 24, 2025 08:38
[2025-02-24] MEDS: METOPROLOL SUCCINATE XL 50 MG TAB PO SCH (09:48)
[2025-02-24] MEDS: FLECAINIDE ACETATE 50 MG TAB PO SCH (09:54)
--- NOTE | 2025-02-24 11:38 | DVHPN2 ---
Eyes: No Pain, No Vision change, No Conjunctivae inflammation, No Eyelid inflammation, No Other, No Redness ENT: No Ear pain, No Ear discharge, No Nose pain, No Nose discharge, No Nose congestion, No Mouth pain, No Mouth swelling, No Throat pain, No Throat swelling, No Other Cardiovascular: Palpitations Respiratory: No Cough, No Dry, No Shortness of breath, No SOB with excertion, No Wheezing, No Hemoptysis, No Pleuritic Pain, No Sputum, No Other Gastrointestinal: No Nausea, No Vomiting, No Abdominal Pain, No Diarrhea, No Constipation, No Melena, No Hematochezia, No Other Genitourinary: No Dysuria, No Frequency, No Incontinence, No Hematuria, No Retention, No Other Musculoskeletal: No other, No neck pain, No shoulder pain, No arm pain, No back pain, No hand pain, No leg pain, No foot pain Skin: No Rash, No Lesions, No Jaundice, No Bruising, No Other Objective Vitals Vital Signs Date Time Temp Pulse Resp B/P (MAP) Pulse Ox O2 Delivery O2 Flow Rate FiO2 02/24/25 09:48 64 120/86 02/24/25 09:00 97.5 21 98 97.5 02/23/25 22:04 Nasal Cannula* 2 28 Intake/Output Intake and Output 02/24/25 07:00 Intake Total 1200 ml Output Total 200 ml Balance 1000 ml Intake Oral 200 ml IV Total 1000 ml Output Urine Total 200 ml Medications Current Medications Medications Dose Ordered Sig/Adonay Route Start Time Stop Time Status Last Admin Dose Admin Nitroglycerin 0.4 mg Q5MINP PRN SL 02/23/25 07:15 Morphine Sulfate 2 mg Q30M PRN IV 02/23/25 07:15 Magnesium Oxide 400 mg BID PO 02/23/25 10:00 02/24/25 09:43 400 MG Enoxaparin Sodium 30 mg DAILY SC 02/23/25 10:00 02/24/25 09:43 30 MG Pantoprazole Sodium 40 mg DAILY@0600 PO 02/24/25 06:00 02/24/25 05:37 40 MG Flecainide Acetate 25 mg Q12HR PO 02/24/25 10:00 Metoprolol Succinate 12.5 mg DAILY PO 02/24/25 10:00 Laboratory Results Laboratory Tests 02/23/25 02:16 Urinalysis Test 02/23/25 01:45 Urine Color Light-yellow (Yellow) Urine Clarity Clear (Clear) Urine pH 6.0 (5.0-9.0) Urine Specific [place] 1.011 (1.001-1.035) Urine Protein Negative (Negative) Urine Ketones Negative (Negative) Urine Blood Negative /uL (Negative) Urine Nitrite Negative (Negative) Urine Bilirubin Negative (Negative) Urine Urobilinogen Normal mg/dL (Negative) Urine Leukocyte Esterase Negative /uL (Negative) Urine RBC <1 /hpf (0 - 4) Urine Microscopic WBC 3 /HPF (0-5) Urine Squamous Epithelial Cells Few /hpf (<5) Urine Renal Epithelial Cells Few /hpf (None Seen) Urine Bacteria None seen /hpf (None Seen) Urine Glucose Normal mg/dL (Normal) Microbiology Microbiology Date/Time Source Procedure Growth Status 02/23/25 02:16 Blood Blood Culture - Preliminary NO GROWTH AFTER 24 HOURS OF INCUBATION. Resulted ANKUR ALCARAZ MD Feb 24, 2025 11:38
--- NOTE | 2025-02-24 16:26 | DVHDS2 ---
Discharge Summary Date of Admission Feb 23, 2025 at 07:07 Date of Discharge: Feb 24, 2025 Admitting Diagnosis Ventricular bigeminy Hypotension Cannabinoid use Palpitation likely due to ventricular bigeminy Mild pulmonary vascular congestion Obesity BMI 31.9 kg/m2 History of hypertension Current cigarette smoker Labs/Diagnostic Data: Laboratory Results Test 02/23/25 08:18 02/23/25 02:16 02/23/25 01:45 POC Glucose 90 mg/dl (70-106) White Blood Count 5.8 10^3/uL (4.4-10.8) Red Blood Count 4.47 10^6/uL (4.0-5.20) Hemoglobin 13.6 g/dL (12.2-16.2) Hematocrit 40.4 % (36.0-46.0) Mean Corpuscular Volume 90.3 fL (80.0-100.0) Mean Corpuscular Hemoglobin 30.3 pg (28.0-32.0) Mean Corpuscular Hemoglobin Concent 33.6 g/dL (32.0-36.0) Red Cell Distribution Width 13.4 % (11.8-14.3) Platelet Count 227 10^3/uL (140-450) Mean Platelet Volume 8.5 fL (6.9-10.8) Neutrophils (%) (Auto) 58.4 % (37.0-80.0) Lymphocytes (%) (Auto) 28.4 % (10.0-50.0) Monocytes (%) (Auto) 10.0 % (0.0-12.0) Eosinophils (%) (Auto) 2.4 % (0.0-7.0) Basophils (%) (Auto) 0.8 % (0.0-2.0) Neutrophils # (Auto) 3.4 10 ^3/uL (1.6-8.6) Lymphocytes # (Auto) 1.7 10 ^3/uL (0.4-5.4) Monocytes # (Auto) 0.6 10 ^3/uL (0-1.3) Eosinophils # (Auto) 0.1 10 ^3/uL (0-0.8) Basophils # (Auto) 0 10 ^3/uL (0-0.2) Nucleated Red Blood Cells 0.2 % Sodium Level 139 mmol/L (136-145) Potassium Level 4.1 mmol/L (3.5-5.1) Chloride Level 103 mmol/L (98-107) Carbon Dioxide Level 27 mmol/L (20-31) Anion Gap 9 (5-15) Blood Urea Nitrogen 16 mg/dL (9-23) Creatinine 1.26 mg/dL (0.550-1.02) Glomerular Filtration Rate Calc 51 mL/min (>90) BUN/Creatinine Ratio 12.7 (10.0-20.0) Serum Glucose 106 mg/dL (74-106) Lactic Acid Level 0.7 mmol/L (0.4-2.0) Calcium Level 9.1 mg/dL (8.7-10.4) Magnesium Level 2.1 mg/dL (1.6-2.6) Total Bilirubin 0.4 mg/dL (0.2-1.0) Aspartate Amino Transferase (AST) 18 U/L (13-40) Alanine Aminotransferase (ALT) 14 U/L (7-40) Alkaline Phosphatase 79 U/L (46-116) Troponin I High Sensitivity < 3 ng/L (</=34) B-Type Natriuretic Peptide 16.68 pg/mL (0-100) Total Protein 7.1 g/dL (5.7-8.2) Albumin 4.2 g/dL (3.2-4.8) Lipase 44 U/L (12-53) Thyroid Stimulating Hormone (TSH) 2.64 uIU/mL (0.55-4.78) Plasma/Serum Blood Alcohol < 3.0 mg/dL (<10) Urine Color Light-yellow (Yellow) Urine Clarity Clear (Clear) Urine pH 6.0 (5.0-9.0) Urine Specific [place] 1.011 (1.001-1.035) Urine Protein Negative (Negative) Urine Ketones Negative (Negative) Urine Blood Negative /uL (Negative) Urine Nitrite Negative (Negative) Urine Bilirubin Negative (Negative) Urine Urobilinogen Normal mg/dL (Negative) Urine Leukocyte Esterase Negative /uL (Negative) Urine RBC <1 /hpf (0 - 4) Urine Microscopic WBC 3 /HPF (0-5) Urine Squamous Epithelial Cells Few /hpf (<5) Urine Renal Epithelial Cells Few /hpf (None Seen) Urine Bacteria None seen /hpf (None Seen) Urine Glucose Normal mg/dL (Normal) Urine Opiates Screen Neg (NEGATIVE) Urine Fentanyl Screen Neg (NEGATIVE) Urine Barbiturates Screen Neg (NEGATIVE) Urine Phencyclidine Screen Neg (NEGATIVE) Urine Amphetamines Screen Neg (NEGATIVE) Urine Benzodiazepines Screen Neg (NEGATIVE) Urine Cocaine Screen Neg (NEGATIVE) Urine Cannabinoids Screen Pos (NEGATIVE) Influenza Type A Antigen Negative (Negative) Influenza Type B Antigen Negative (Negative) SARS-CoV-2 Antigen (Rapid) Negative (NEGATIVE) Other Laboratory Tests 02/23/25 02:16 Brief Hx & Hospital Course: This is a 36 years old female with no known past medical history come to emergency department because of weak, feel uneasy and dizziness. Patient said it started two day prior to admission. The patient denied any chest pain or shortness for breath. The patient had a similar event happened in October and was hospitalized for four days at [place]. She underwent coronary angiogram and she was sent home with metoprolol and advised to follow up with electro physicist for further evaluation for possible pacemaker. However the patient never follow up with any brass sorter's regarding to this problem. The patient was found to have ventricle bigeminy. The patient was seen by brass sorter and Dr. Garcia recommend flecainide low dose at 25 mg twice per day and low-dose of metoprolol XL 12.5 mg twice per day. Follow up with him in the office for event monitor. Activity as tolerated. Diet low-salt low-cholesterol diet. Follow up with primary care physician 1-2 weeks. Follow up with Cardiology/electrophysicist per schedule. Physical exam: HEENT: Normocephalic atraumatic pupils equal react to light and accommodation. Extraocular muscles intact, conjunctiva pink, oropharynx moist, no thrush, no exudate. Lymphatic: No lymphadenopathy Cardiovascular exam: S1, S2 was heard. No murmurs, rubs, gallops Lung: Clear on auscultation bilaterally, no wheeze, rale, rhonchi. GI: Abdominal soft, nondistended, nontenderness, positive bowel sounds. Extremity: No crepitus, cyanosis, edema. Pedal pulses present bilateral. Full range of motion. Skin: Normal turgor, no rash. Psych: Alert, oriented x3. Neurology: No focal deficits, cranial nerve II to XII grossly intact. This medical document was created using an electronic medical record system with [employer] direct computerized dictation system. Although this document has been carefully reviewed, there may still be some phonetic and typographical errors. These areas are purely typographical due to imperfections of the software programs, and do not reflect any compromise in the patient's medical care. Condition at Discharge: Stable Final Diagnosis/Problems List Ventricular bigeminy Hypotension Cannabinoid use Palpitation likely due to ventricular bigeminy Mild pulmonary vascular congestion Obesity BMI 31.9 kg/m2 History of hypertension Current cigarette smoker Discharge Disposition: Home Discharge Instruct/Medications Scheduled Flecainide Acetate (Tambocor Tablet), 25 MG PO Q12HR Metoprolol Succinate (Toprol Xl), 0.5 TAB PO DAILY Discharge Statement: "Patient was advised to return to the ER or call 911 if any headaches, dizziness, shortness of breath, chest pain, abdominal pain, bleeding, fevers, or worsening of medical condition. Patient was counseled about treatment plan, medications, possible side effects, patientverbalized understanding. All questions were answered to the best of my ability. This discharge took greater then 30 minutes in planning, reviewing documentation, counseling the patient, and discussing with other team members." ASSESSMENT ASSESSMENT Assessment Date of Service: Feb 24, 2025 Billing Provider: ANKUR ALCARAZ MD Common Visit Codes: 70881-NCI/OBS DISCH DAY >30min ANKUR ALCARAZ MD Feb 24, 2025 16:26
[2025-02-24] MEDS ORDERED: FLE50T PO (16:27)
[2025-02-24] MEDS ORDERED: METO25TA36 PO (16:30)
--- NOTE | 2025-02-25 08:11 | DVHSR ---
APPROVED REPORT EXAM: Two-dimensional and M-mode echocardiogram with Doppler and color Doppler. Blood Pressure: 95/61 mmHg INDICATION Bigeminy RISK FACTORS Height: 63, Weight: 193 DIMENSIONS LVDd4.9 (3.8-5.7cm)LA (2D)4.5 (1.9-4.0cm)Aortic Root3.9 (2.0-3.7cm) LVDs3.1 (2.5-4.0cm)LA (MM) (1.9-4.0cm)Aortic Cusp Exc1.9 (1.5-2.0cm) EF (%) 66.0 (55-70%)Rt. Atrium4.3 (1.9-4.0cm)Asc. Aorta cm IVSd1.1 (0.7-1.1cm)RV (D) (1.8-2.4cm) PWd1.2 (0.7-1.1cm) Mitral Valve MitralMitral Stenosis E wave0.76m/sMV Mean GR.mmHg A wave0.56m/sMV Peak GR.70mmHg E/A ratio1.42D MVAcm2 DECEL [id number] 1/2 [id number] IVRTmsDop MVA3.37cm2 Aortic Valve Aortic ValveAortic Stenosis V11.09m/Alexy Mean GR.4mmHg V21.26m/Alexy Peak GR.6mmHg LVOT Diameter2.0 (1.8-2.4cm)Doppler AVA2.72cm2 Pulmonic Valve V20.78m/s Tricuspid Valve TR Velocity1.92m/s [id number] Conclusion Left ventricle: Mild concentric left ventricular hypertrophy was seen LVEF was around 65%. There wa s no gross wall motion abnormality. Diastolic function of left ventricle was considered normal. Right ventricle was normal-sized with normal systolic function. Both atria were mildly dilated. Aortic valve was trileaflet. There was no aortic insufficiency/stenosis. There was mild mitral/tric uspid regurgitation. Pulmonary valve was not well visualized. Right ventricular systolic pressure was assessed normal at 30 mm Hg. There was no pericardial effusion Aortic root was mildly dilated at 3.9 cm.
== END 2025-02-24 18:30 | disposition home or self-care (01) | DRG 201 ==
LOC: ER 01:34 → EDBD 01:34 → EDUNIT# 01:34 → OVERFLOW 07:07 → TELE-WESTW 21:50
PROVIDERS: ADMIT Internal Medicine; ATTEND Internal Medicine
DX: I49.3 Ventricular premature depolarization (principal); E66.9 Obesity, unspecified; F12.20 Cannabis dependence, uncomplicated; I95.9 Hypotension, unspecified; I10 Essential (primary) hypertension; Z20.822 Contact with and (suspected) exposure to COVID-19; F17.210 Nicotine dependence, cigarettes, uncomplicated; I25.10 Atherosclerotic heart disease of native coronary artery without angina pectoris; Z68.31 Body mass index [BMI] 31.0-31.9, adult; Z87.820 Personal history of traumatic brain injury; Z91.148 Patient's other noncompliance with medication regimen for other reason
CPT/HCPCS: 36415; 71045; 80053; 80307; 80320; 81001; 82962; 83605; 83690; 83735; 83880; 84443; 84484; 85025; 87040; 87426; 87804; 93005; 93306; G0378